=== PATIENT | female | born 2000 | race Hispanic/Latino ===

== ENCOUNTER → 2023-05-29 11:12 | Outpatient (CLI) | payer OTHER, SELFPAY ==
--- NOTE | 2023-05-29 11:14 | DI.US.S_ITS ---
PROCEDURE: US OB <= 14 WEEKS FETUS INDICATIONS: VAGINAL BLEEDING OUTSIDE/PRIOR DATING DATA: Last menstrual period (LMP): Uncertain First dating scan (date and location): 05/28/2020. Estimated date of delivery (SKYLAR) from first dating scan: 12/25/2023. The calculations are made using the ultrasound SKYLAR of 12/25/2023. TECHNIQUE: Real-time scanning was performed of the fetus and maternal pelvic organs, with image documentation. COMPARISON: [facility], US, US OB <= 14 WEEKS FETUS, 05/18/2023, 11:30. FINDINGS: Embryo: Single live intrauterine with crown lump length 3.26 cm, consistent with 10 weeks and 1 day. Gestational sac mean diameter of 4.83 cm, consistent with 10 weeks and 3 days. Composition station age of 10 weeks and 2 days. Yolk sac is seen. Small subchorionic hemorrhage measuring 2.6 x 0.9 x 0.9 cm. Heart rate: 169 Maternal organs: The right ovary is within normal limits. Left ovarian cyst measuring 3.4 x 2.4 x 3.4 cm. IMPRESSION: 1. Single live intrauterine consistent with 10 weeks and 2 days. Estimated delivery date of 12/23/2023 2. Small subchorionic hemorrhage is present. 3. Left ovarian cyst measuring 3.4 cm. We strive to produce accurate, complete, and clear reports of imaging services. To assist us in improving patient care, this report was composed using standard report templates and voice recognition software. Therefore, it may contain abnormal punctuation, insertions and/or omissions. Occasional wrong-word or sound-alike substitutions may occur. Though we review the report and make efforts to correct it, we do recommend that the report be read carefully in proper context to recognize any text inaccuracies. Dictated by: Marco A James M.D. on 05/29/2023 at 15:29 Approved by: Marco A James M.D. on 05/29/2023 at 15:32
== END ==
PROVIDERS: Referring Provider Physician Assistant Medical; Visit Provider Physician Assistant Medical
DX: O20.0 Threatened abortion (principal)
CPT/HCPCS: 76801

== ENCOUNTER → 2023-06-07 14:03 | Outpatient (CLI) | payer OTHER, SELFPAY ==
[2023-06-07 15:00] LABS: Add Manual Diff / Slide Review NO; Basophils Absolute Auto 100 /uL (0-100); Basophils Percent Auto 0.7 % (0-2); Eosinophils Absolute Auto 100 /uL (0-450); Eosinophils Percent Auto 1.3 % (2-4); Hematocrit 37.8 % (36-46); Hemoglobin 13.3 g/dL (12.0-16.0); Lymphocytes Absolute Auto 1900 /uL (1100-4500); Lymphocytes Percent Auto 18.6 % (25-40); Mean Corpuscular HGB Conc 35.2 % (30-36); Mean Corpuscular Hemoglobin 30.4 PG (26-34); Mean Corpuscular Volume 86.3 fL (80-100); Monocytes Absolute Auto 700 /uL (0-900); Monocytes Percent Auto 7.1 % (3-14); Neutrophils Absolute Auto 7400 /uL (1500-7000); Neutrophils Percent Auto 72.3 % (50-75); Platelet Count 272 X10^3/uL (150-400); Red Blood Cell Count 4.38 X10^6/uL (4.0-5.2); White Blood Cell Count 10.2 X10^3/uL (4.5-11.0)
[2023-06-07 15:36] LABS: Alanine Aminotransferase 20 IU/L (<35); Aspartate Aminotransferase 23 IU/L (14-36); Blood Urea Nitrogen 11 mg/dL (7-17); Estimated Glomerular Filt Rate > 60 mL/min (>60)
[2023-06-07 16:48] LABS: HIV 1 & 2 Ab/Ag 4th Gen Combo NEGATIVE (NEGATIVE); Hep C Virus Ab w/Reflex Quant NEGATIVE s/c (NEGATIVE); Hepatitis B Surface Antigen NEGATIVE s/c (NEGATIVE); Rubella Antibody IgG 66.9 IU/mL (>15)
[2023-06-08 09:21] LABS: Varicella IgG Antibody 455 index (Immune >165)
[2023-06-10 08:28] LABS: RPR Screen Non Reactive (Non Reactive)
== END ==
PROVIDERS: Referring Provider Physician Assistant Medical; Visit Provider Physician Assistant Medical
DX: O99.891 Other specified diseases and conditions complicating pregnancy (principal); R10.2 Pelvic and perineal pain
CPT/HCPCS: 36415; 80055; 82565; 84450; 84460; 84520; 84550; 86787; 86803; 86850; 86900; 86901; 87086; 87389; 87480; 87510; 87660

== ENCOUNTER → 2023-06-07 14:03 | Outpatient (CLI) | payer OTHER, SELFPAY ==
[2023-06-09 13:36] LABS: Candida species Negative (Negative); Gardnerella vaginalis Negative (Negative); Trichomoas vaginalis Negative (Negative)
== END ==
PROVIDERS: Visit Provider Physician Assistant Medical
DX: R10.2 Pelvic and perineal pain (principal)
CPT/HCPCS: 87480; 87510; 87660

== ENCOUNTER → 2023-07-10 08:50 | Outpatient (CLI) | payer OTHER, SELFPAY ==
[2023-07-12 21:50] LABS: AFP, Serum 27.8 ng/mL (.); Calc Gestational Age EDD (.); Estriol, Free 0.77 ng/mL (.); Inhibin A, Dimeric 100.36 pg/mL (.); Inhibin A, MoM 0.81 (.); Maternal Ethnicity Other (.); Maternal Weight 226 lbs (.); Number of Fetuses No (.); OSBR Risk 1 IN 10000 (.); Results Report (.); Test Results *Screen Negative* (.); hCG, MoM 0.87 (.); hCG, Serum 30361 mIU/mL (.)
== END ==
PROVIDERS: Referring Provider Family Medicine; Visit Provider Family Medicine
DX: Z34.01 Encounter for supervision of normal first pregnancy, first trimester (principal); Z3A.16 16 weeks gestation of pregnancy
CPT/HCPCS: 36415; 82105; 82677; 84702; 86336

== ENCOUNTER → 2023-08-13 16:03 | Outpatient (CLI) | payer OTHER, SELFPAY | PROVIDERS: Visit Provider Student in an Organized Health Care Education/Training Program | DX: N89.8 Other specified noninflammatory disorders of vagina (principal) | CPT/HCPCS: 87210 ==

== ENCOUNTER → 2023-08-13 16:35 | Outpatient (CLI) | payer OTHER, SELFPAY ==
[2023-08-13 18:26] LABS: Alanine Aminotransferase 20 IU/L (<35); Albumin 3.8 g/dL (3.5-5.0); Albumin Globulin Ratio 1.2 (1.0-2.8); Alkaline Phosphatase 50 U/L (38-126); Aspartate Aminotransferase 22 IU/L (14-36); BUN Creatinine Ratio 22.2 (6-22); Blood Urea Nitrogen 12 mg/dL (7-17); Calcium 9.3 mg/dL (8.4-10.2); Carbon Dioxide 24 mmol/L (22-32); Chloride 103 mmol/L (98-107); Estimated Glomerular Filt Rate > 60 mL/min (>60); Globulin 3.1 g/dL (1.7-4.1); Glucose 88 mg/dL (70-100); HEMOLYSIS < 15 (0-50); Potassium 3.2 mmol/L (3.4-5.1); Sodium 134 mmol/L (137-145); Total Protein 6.9 g/dL (6.3-8.2)
[2023-08-13 18:31] LABS: Bilirubin Total < 0.1 mg/dL (0.2-1.3)
[2023-08-16 10:09] LABS: Bile Acids 3.1 umol/L (0.0-10.0)
== END ==
PROVIDERS: Referring Provider Student in an Organized Health Care Education/Training Program; Visit Provider Student in an Organized Health Care Education/Training Program
DX: O99.719 Diseases of the skin and subcutaneous tissue complicating pregnancy, unspecified trimester (principal); L29.9 Pruritus, unspecified; O99.891 Other specified diseases and conditions complicating pregnancy; N89.8 Other specified noninflammatory disorders of vagina; R30.0 Dysuria
CPT/HCPCS: 36415; 80053; 82239; 87086; 87210

== ENCOUNTER → 2023-08-16 12:52 | Outpatient (CLI) | payer OTHER, SELFPAY ==
--- NOTE | 2023-08-16 12:53 | DI.US.S_ITS ---
PROCEDURE: US OB >= 14 WEEKS FETUS INDICATIONS: ANATOMY SCAN OUTSIDE/PRIOR DATING DATA: Last menstrual period (LMP): Unknown. LMP-based estimated date of delivery (SKYLAR): Unknown. First dating scan (date and location): 05/28/2023 Estimated date of delivery (SKYLAR) from first dating scan: 12/25/2023. The calculations are made using the working SKYLAR of 12/25/2023. TECHNIQUE: Real-time scanning was performed of the fetus, with image documentation and biometric measurements. Endovaginal scanning: None COMPARISON: None. FINDINGS: General: A single living intrauterine gestation is present. Presentation: Breech. Placenta: Placental position is posterior , without previa. Amniotic fluid index: 15.2 cm, normal range is 5-24 cm. Single deepest vertical pocket is 5.5 cm. heart rate: 149 beats per minute. Maternal cervical canal: 3.4 cm long. Normal lower limit is 2.5 cm. biometrics: Biparietal diameter: 4.7 cm, 20 week 2 day Head circumference: 18.5 cm, 20 week 6 day Abdominal circumference: 17.7 cm, 22 week 4 day Femur length: 3.6 cm, 21 week 4 day Clinically estimated gestational age: 21 week 2 day Composite gestational age from present scan: 21 week 2 day Estimated weight and percentile: 462 g, 78 percentile Anatomic survey: Neuro: Ventricles are non-dilated at less than 10 mm. Cisterna magna is normal at 3-11 mm. Cerebellum is normal in size and morphology. Nuchal skin fold: Normal at less than 6 mm between 14-21 weeks gestational age. Face: Nose and lips, facial profile are normal. Spine: No evidence for spina bifida. Heart: 4-chambered heart is present, with normal ventricular outflow tracts. Diaphragm: Diaphragm is intact. Stomach: Left-sided stomach is present. Kidneys: Mild bilateral hydronephrosis. The right and left renal pelvis measures 10.9 mm and 8.9 mm respectively Cord: 3-vessel cord has orthotopic insertion. Bladder: Normal in size. Extremities: All 4 extremities identified. IMPRESSION: Single live intrauterine consistent with 21 week 2 day gestation by current ultrasound. Mild bilateral hydronephrosis. Remainder of the anatomic survey unremarkable Approved by: Fletcher Gomez M.D. on 08/16/2023 at 17:04
== END ==
PROVIDERS: Referring Provider Family Medicine; Visit Provider Family Medicine
DX: Z36.89 Encounter for other specified antenatal screening (principal); Z3A.21 21 weeks gestation of pregnancy
CPT/HCPCS: 76811

== ENCOUNTER 2023-08-29 13:35 | Outpatient (CLI) | payer OTHER, SELFPAY ==
[2023-08-29 14:42] LABS: Appearance Urine UA CLEAR; Bilirubin Urine UA NEGATIVE (NEGATIVE); Color Urine UA YELLOW; Glucose Urine UA NEGATIVE (Negative); Ketones Urine UA NEGATIVE (NEGATIVE); Leukocyte Esterase Urine UA TRACE (NEGATIVE); Nitrite Urine UA NEGATIVE (Negative); Occult Blood Urine UA TRACE-INTACT (Negative); Protein Urine UA NEGATIVE (Negative); Urobilinogen Urine UA 0.2 E.U./dL (0.2)
[2023-08-29 14:43] LABS: pH Urine UA 6.5 (4.5-8.0)
[2023-08-29 14:48] LABS: RBC Urine 0-1/HPF (0-5/HPF); WBC Urine 5-10/HPF (0-5/HPF)
[2023-08-29 14:49] LABS: Bacteria Urine None Seen; Culture Indicated Urine Specimen Cultured; Squamous Epithelial Cell Urine 1-5 /HPF (0-5/HPF)
--- NOTE | 2023-08-29 15:10 | P.TNLD_ITS ---
Visit Information Visit Information Date of evaluation: 08/29/23 Primary OB Provider: Zachary Grider On-call OB Provider: Dinora Ray Comments/Additional reasons for admission: 23-year-old at 23+1 weeks presented to triage for blood on the toilet paper today when wiping. Denies any abdominal pain or leaking fluid. Has had a UTI in this , with several rounds of treatment. Vital Signs Vital Signs: reviewed in OBIX, within normal parameters PFSH Medical History (Updated 08/29/23 @ 15:15 by Dinora Ray DO) Cyclical vomiting Abnormal sputum Anxiety Surgical History (Updated 05/28/23 @ 08:21 by Felecia Beach, RN) History of removal of skin mole History of dental surgery [place] teeth extracted Family History (Updated 05/28/23 @ 08:24 by Felecia Beach, RN) Mother Breast tumor Migraine Osteoarthritis Grandmother Hypertension Heart disease Hypothyroidism Father Hypertension Grandmother Diabetes mellitus Family/Other Hypothyroidism Social History marital status: number of children: 0 household members: spouse lives independently: Yes caregiver/support person: No housing: condominium ([facility]) pets and animals: Yes (2 dogs, 1 lizard) education level: college (associate's degree, working on bachelor's) occupational status: previously employed and student current occupational exposures/hazards: No special katherine needs: No travel history: recent (domestic only) seatbelt use: always helmet use: No water heater temp set < 120 deg: Yes working smoke detector in home: Yes fire extinguisher in home: No carbon monox detector in home: Yes firearms in home: No do you feel safe at home: Yes Smoking Status: Former smoker (quit around the time she learned she was ) Tobacco: How many years used: 5 (MJ) second hand exposure: Yes ( vapes) alcohol intake: never substance use type: marijuana (stopped when she became ) during the past year weight has: decreased > 10 lbs (unintentional, likely due to vomiting) well-balanced diet: about half the time daily servings fruits/ve-4 (mostly fruit, very little veg) caffeine: Yes (fruited green tea) Type(s) of exercise: walking and other (hiking) frequency: daily duration: 15-30 minutes/day Review of Systems Review of Systems ROS: Yes All systems reviewed with the patient and are negative except as otherwise documented Objective Labs Labs: Laboratory Results - last 24 hr 08/29/23 14:00 Urine Color Yellow Urine Appearance Clear Urine pH 6.5 Ur Specific [place] 1.010 Urine Protein Negative Urine Glucose (UA) Negative Urine Ketones Negative Urine Occult Blood Trace-intact Urine Nitrate Negative Urine Bilirubin Negative Urine Urobilinogen 0.2 Ur Leukocyte Esterase Trace H Urine RBC 0-1/hpf Urine WBC 5-10/hpf H Ur Squamous Epith Cells 1-5 /hpf Urine Bacteria None seen Ur Culture Indicated? Specimen cultured Evaluation Evaluation Comments: doptones within normal parameters Diagnosis, Plan/Disposition Final Diagnosis (1) Vaginal bleeding during : Status: Acute Plan/Disposition Plan: 23-year-old at 23+ 1 weeks with reassuring evaluation in triage today. Doptones were normal, her belly was soft and nontender per nursing evaluation. No vaginal bleeding while in triage today. Her UA was sent for culture. -bleeding precautions given to patient, with reasons to return to care -follow-up with primary OB provider as scheduled OB Disposition: home
== END 2023-08-29 15:13 | disposition home or self-care (01) ==
LOC: LABOR 13:51 → OB 08-31 13:50
PROVIDERS: Referring Provider Student in an Organized Health Care Education/Training Program; Visit Provider Student in an Organized Health Care Education/Training Program
DX: O46.92 Antepartum hemorrhage, unspecified, second trimester (principal); Z3A.23 23 weeks gestation of pregnancy
CPT/HCPCS: 59025; 81001; 87086; G0378; G0379

== ENCOUNTER → 2023-09-02 14:08 | Outpatient (CLI) | payer OTHER, SELFPAY | PROVIDERS: Visit Provider Nurse Practitioner Family | DX: R10.9 Unspecified abdominal pain (principal); N94.9 Unspecified condition associated with female genital organs and menstrual cycle | CPT/HCPCS: 87086; 87210 ==

== ENCOUNTER 2023-09-14 08:01 | Inpatient (IN) | payer OTHER, SELFPAY ==
[2023-09-14 08:59] LABS: Add Manual Diff / Slide Review NO; Basophils Absolute Auto 0 /uL (0-100); Basophils Percent Auto 0.2 % (0-2); Eosinophils Absolute Auto 100 /uL (0-450); Eosinophils Percent Auto 0.4 % (2-4); Hematocrit 34.8 % (36-46); Hemoglobin 11.8 g/dL (12.0-16.0); Lymphocytes Absolute Auto 1100 /uL (1100-4500); Lymphocytes Percent Auto 6.3 % (25-40); Mean Corpuscular HGB Conc 33.9 % (30-36); Mean Corpuscular Hemoglobin 30.1 PG (26-34); Mean Corpuscular Volume 88.9 fL (80-100); Monocytes Absolute Auto 1100 /uL (0-900); Monocytes Percent Auto 6.4 % (3-14); Neutrophils Absolute Auto 14600 /uL (1500-7000); Neutrophils Percent Auto 86.7 % (50-75); Platelet Count 198 X10^3/uL (150-400); Red Blood Cell Count 3.91 X10^6/uL (4.0-5.2); Red Cell Distribution Width 13.5 % (11.6-14.8); White Blood Cell Count 16.9 X10^3/uL (4.5-11.0)
[2023-09-14 09:07] LABS: COVID19 -Nasal RAPID Negative (Negative)
[2023-09-14] MEDS: MAGNESIUM SULFATE 4 GM/100 ML PIGGYBACK IV (09:08)
[2023-09-14] MEDS: BETAMETHASONE 30 MG/5 ML MDV 12 MG IM (09:11)
--- NOTE | 2023-09-14 09:42 | P.HPOB_ITS ---
OB HPI Date/Time Date of admission: 09/14/23 Date Patient Seen: 09/14/23 Time Patient Seen: 08:45 History of Present Condition Chief complaint: observation of labor SKYLAR Calculator 2 Estimated Delivery Date Method Current WG Current Estimate 12/25/23 Ultrasound #1 25w 3d Other Estimates 12/08/23 LMP (Uncertain) 27w 6d 12/23/23 Ultrasound #2 25w 5d Estimated Gestational Age (weeks): 25+3 : 1 Para: 0 Narrative: 23-year-old at [place] 25+3 weeks by 1st trimester ultrasound presents with complaint of contractions. Started feeling cramping sensation in her abdomen yesterday afternoon and overnight. Lost part of her mucus plug at approximately 2:00 a.m. this morning and again additional mucus plug with light spotting at approximately 6:30 a.m. this morning. Presented to labor and delivery at 8:30 a.m. and had rupture of membranes with clear fluid as she walked to the door. Continues to feel moderate to severe contractions every 4-5 minutes. Endorses normal movement, no additional bleeding since spotting this morning. care: limited care, initiated at week # (11), number of visits (5) and pounds weight gain (21) Dating criteria OB: based on 1st trimester US only Ultrasounds: normal 1st trimester US and normal mid trimester US Obstetrical complications: labor and other (obesity) Preadmission Labs Last OB Lab Results: 2 Blood Type A Positive 06/07/23 14:11 Antibody Screen Negative 06/07/23 14:11 Hematocrit 34.8 % (36-46) L 09/14/23 08:47 Hemoglobin 11.8 g/dL (12.0-16.0) L 09/14/23 08:47 Hepatitis B Surface Antigen Negative s/c (NEGATIVE) 06/07/23 14 :11 Hepatitis C Antibody Negative s/c (NEGATIVE) 06/07/23 14:11 Rubella Antibody 66.9 IU/mL (>15) 06/07/23 14:11 Varicella-Zoster IgG Antibody 455 index (Immune >165) 06/07/23 14:11 -: Chlamydia screen: negative and Gonorrhea screen: negative Genetic Screens: Quad screen: Normal External Labs Blood type OB HPI: A (+) positive HCT: 34.8 PAP: Normal Genetic Screens: Quad screen: Normal Evaluation Evaluation Baseline heart rate: 160 Variability: Moderate (11-25) monitor accelerations: Absent Monitor Decelerations: Variable ([id number]) Contraction Frequency (minutes): 4 Uterine Contraction Intensity: Moderate Category of Tracing: Appropriate for gestational age Status: Category ll Dilation (cm): 5 Effacement (%): 100 Position of cervix: mid Consistency: soft Comments: Evangelista rupture with amniotic fluid pooling and vaginal vault PFSH Medical History (Updated 09/14/23 @ 10:50 by Zachary Grider MD) Cyclical vomiting Abnormal sputum Anxiety Surgical History (Updated 05/28/23 @ 08:21 by Felecia Beach, CARL) History of removal of skin mole History of dental surgery [place] teeth extracted Family History (Updated 05/28/23 @ 08:24 by Felecia Beahc, CARL) Mother Breast tumor Migraine Osteoarthritis Grandmother Hypertension Heart disease Hypothyroidism Father Hypertension Grandmother Diabetes mellitus Family/Other Hypothyroidism Social History marital status: number of children: 0 household members: spouse lives independently: Yes caregiver/support person: No [facility] pets and animals: Yes (2 dogs, 1 lizard) education level: college (associate's degree, working on bachelor's) occupational status: previously employed and student current occupational exposures/hazards: No special katherine needs: No travel history: recent (domestic only) seatbelt use: always helmet use: No water heater temp set < 120 deg: Yes working smoke detector in home: Yes fire extinguisher in home: No carbon monox detector in home: Yes firearms in home: No do you feel safe at home: Yes Smoking Status: Former smoker (quit around the time she learned she was ) Tobacco: How many years used: 5 (MJ) second hand exposure: Yes ( vapes) alcohol intake: never substance use type: marijuana (stopped when she became ) during the past year weight has: decreased > 10 lbs (unintentional, likely due to vomiting) well-balanced diet: about half the time daily servings fruits/ve-4 (mostly fruit, very little veg) caffeine: Yes (fruited green tea) Type(s) of exercise: walking and other (hiking) frequency: daily duration: 15-30 minutes/day Meds Home Medications and Allergies Home Medications Medication Instructions Recorded Confirmed Type HAQ76-HR 400 mcg-om3 35 mg-dha 25 tab PO 05/28/23 09/05/23 History mg-epa 5 mg-fish oil chewable tablet ferrous gluconate 240 mg (27 mg 240 mg PO DAILY 05/28/23 09/05/23 History iron) tablet (Ferate) ondansetron 8 mg disintegrating 8 mg PO Q8H PRN nausea and vomiting 05/28/23 09/05/23 History tablet hydroxyzine HCl 25 mg tablet 25 mg PO BID #20 tabs 06/07/23 09/05/23 Rx doxylamine succinate 25 mg tablet 25 mg PO BEDTIME PRN nausea #30 07/10/23 09/05/23 Rx (Unisom (doxylamine)) tabs pyridoxine (vitamin B6) 50 mg 50 mg PO TID #90 tabs 07/10/23 09/05/23 Rx tablet simethicone 80 mg chewable tablet 80 mg PO BID-QID PRN abdominal 07/10/23 09/05/23 Rx (Gas Relief (simethicone)) distention #90 tabs hydrocortisone 2.5 % topical cream 1 applic topical BID PRN itching 09/05/23 09/05/23 Rx #30 grams Allergies Allergy/AdvReac Type Severity Reaction Status Date / Time No Known Drug Allergies Allergy Unverified 09/05/23 14:46 Review of Systems Review of Systems ROS: Yes All systems reviewed with the patient and are negative except as otherwise documented OB Exam Narrative Exam Narrative: General: Mildly uncomfortable with contractions HEENT: Normocephalic, EOMI, external ears and nose normal-appearing, moist mucous membranes Resp: Clear to auscultation bilaterally, comfortable work of breathing CV: Regular rate and rhythm Abdomen: Soft, nontender, 25 week gravid uterus : Normal external genitalia vaginal vault pink and moist with significant fluid pooling with bulging bag on speculum exam, manual cervical exam 4/100/-2 at initial evaluation, racquet maker present throughout exam Neuro: A&O x3, moves all extremities, sensory or motor deficits Objective Imaging US - abdomen: My impression: Cephalic presentation on bedside ultrasound, MVP 2.5 cm Labs 09/14/23 08:47 Labs: Laboratory Results - last 24 hr 09/14/23 09/14/23 08:47 08:49 WBC 16.9 H RBC 3.91 L Hgb 11.8 L Hct 34.8 L MCV 88.9 MCH 30.1 MCHC 33.9 RDW 13.5 Plt Count 198 Neut % (Auto) 86.7 H Lymph % (Auto) 6.3 L Hughes % (Auto) 6.4 Eos % (Auto) 0.4 L Baso % (Auto) 0.2 Neut # (Auto) 77748 H Lymph # (Auto) 1100 Hughes # (Auto) 1100 H Eos # (Auto) 100 Baso # (Auto) 0 SARS-CoV-2 (PCR) Negative Assessment and Plan Assessment and Plan Assessment and Plan narrative: 23-year-old at [place] 25+3 weeks in labor. Betamethasone 12 mg IV MgSO4 4 g bolus, 2 grams/hour IV ampicillin 2 g q.8 hours Nifedipine 30 mg p.o. for tocolysis Spoke with on-call Ob at insufficient staffing for transfer. Spoke to on- call OB [facility] feels patient unstable for transfer this time, recommends monitoring with attempted tocolysis and can consider transfer later today if she remains stable. Over the course of initial evaluation patient progress to 9 cm dilation with bulging bag. NICU transport team at [facility] and en route via ground transport. Anticipate vaginal delivery here with prompt transfer to higher level of care. On-call shell machine operator and RT aware, will be present for delivery. Time Spent with Patient Total time spent with greater than 50% in coordination of care (as documented) at patient's floor/unit and/or counseling patient:: Greater than 35 minutes
[2023-09-14] MEDS: LACTATED RINGERS 1,000 ML 100 ML IV (09:45)
[2023-09-14] MEDS: AMPICILLIN 2,000 MG in SODIUM CHLORIDE 0.9% 100 ML 200 MG IV (09:45)
[2023-09-14] MEDS: MAGNESIUM SULFATE 20 GM/500 ML IV.SOLN IV (09:49)
[2023-09-14 12:47] LABS: Strep Grp B PCR POS for Grp B Strep
--- NOTE | 2023-09-14 13:21 | RT ---
Called to L&D for 25 week delivery. All equip on and ready, warmer on [id number]/5 and bag mask unit. MD and RN plus team at bedside. [facility] arrived at noon and took over care.
[2023-09-14] MEDS: OXYTOCIN PREMIX 30 UNIT/500 ML PLAST..BAG 200 UNIT IV (13:43)
--- NOTE | 2023-09-14 14:08 | PATH_ITS ---
[facility] Accession Number: [id number] No. of containers..01 Tissue . 01 Material submitted: . placenta - PLACENTA . 01 Diagnosis: Placenta, 25 + 3 Weeks, 236 grams: 1. Acute chorioamnionitis. 2. Villous infarct, subacute, 0.5 cm in greatest dimension. 3. Subchorionic intervillous thrombus, 1.2 cm (as measured on slide). 4. Three vessel cord without funisitis. 5. Overall villous maturation appropriate for gestational age. MRV 09/27/2023 1327 Local . 01 Electronically signed: . Ashley Alvarado MD, Pathologist NPI- [id number] . 01 Gross description: . The specimen is received in formalin labeled with the patient's name, , and placenta, and consists of a discoid riojas placenta with a trimmed weight of 236 grams and measuring 13.1 x 12.0 x 1.9 cm with no accessory lobes identified. The membranes are soto and translucent with thickened, gelatinous areas occupying approximately 10% of the membrane surface. No additional thickening or lesions are identified. They insert at the margin and have a point of rupture 10.2 cm from the nearest placental disc edge. The segment of cord measures 6.6 cm in length by 1.0 cm in average diameter with a leftward coil and an index of approximately 1 twist per 5 cm. The cord inserts eccentrically 3.5 cm from the nearest placental disc edge. Sectioning reveals unremarkable trivascular architecture with no knots or lesions identified. The surface is blue-soto with normal arborizing vasculature, and no discoloration or lesions identified. The maternal surface is apparantly complete with some small areas of adherent hemorrhage occupying approximately 10% of the maternal surface. No additional discoloration or lesions are identified. Sectioning reveals a pink-soto, spongy cut surface with no discoloration or lesions identified. J2Ee Application Developer sections are submitted as follows: A1: Membrane roll and placental end of cord. A2: Membrane roll and end of cord. A3-A4: Full thickness sections with adherent hemorrhagic material. A5-A7: Central full thickness unremarkable sections. ([id number]) /TAYA 09/27/2023 1420 Local . 01 Microscopic: . PAS stains were performed on blocks A1 and A3 in order to evaluate the vessels for neutrophilic extravasation. No definite migration of neutrophils is identified in the vascular wall. . 01 Pathologist provided ICD-10: O41.1220 . 01 CPT . 642718, 545850 Specimen Comment: A courtesy copy of this report has been sent to [facility] Pathology Performed at: 01 [facility] Cytology [address] [place] [address], [place], [place] [id number] MD Gucci Griffiths MD Phone: [phone]
--- NOTE | 2023-09-14 14:42 | P.PCNOB_ITS ---
Events: Labor < 37 wks Labor & Delivery Delivery date: 09/14/23 Intrapartal Events: Deceleration (Variables) Cervical ripening method: none Induction method: none Delivery monitor: external FHT Route of delivery: L&D Laceration Description: None Estimated blood loss (mL): 100 Anesthesia Type: None Narrative: Patient fully dilated at 1322 and began pushing. Spontaneous vaginal delivery of a viable female in the OA position occurred at 1337. The was suctioned and stimulated at the perineum, and gave appropriate cry with movement of all extremities immediately. Decision was made to delay cord clamping for maximal blood volume given extreme prematurity. Cord was clamped and cut at 45 seconds, and handed off to supervisor sandblaster at bedside for evaluation. Cord blood and segment were obtained. The placenta was delivered without difficulty using gentle cord traction and found to be intact with a three-vessel cord. After fundal massage the uterus was firm and bleeding stopped. The vagina and cervix were examined with no lacerations noted. Patient stable. [place] Baby 1: Infant gender: Female Presentation: vertex Placenta delivery description: Spontaneous Cord Vessel Description: 3 Vessels score (1 min): 2 score (5 min): 4 score (10 min): 7 weight: 1 lb 12.925 oz Plan for aftercare: Routine care
[2023-09-14] MEDS: IBUPROFEN 600 MG TABLET PO ×2 (17:09→23:22)
[2023-09-14 18:25] VITALS: BP 111/71
--- NOTE | 2023-09-15 09:49 | P.DS_ITS ---
Discharge Providers Provider Date of admission: 09/14/23 08:01 Discharge Date: 09/15/23 Primary care physician: Zachary Grider MD Consults: 09/15/23 14:36 Consult to Fixer Supervisor Routine Comment: Discharge provider: Zachary Grider MD Summary Hospital Course Date Patient Seen: 09/15/23 Time Patient Seen: 09:20 Diagnoses: labor with delivery in second trimester Hospital Course: Admitted for labor with spontaneous vaginal delivery at [place] 25+3 weeks. [place] transferred to higher level of care due to extreme prematurity. course uncomplicated. At time of discharge she is ambulating, voiding, passing flatus, tolerating a normal diet, and pain is well controlled. Peripartum Data Infant Delivery Method: Natural Vaginal Laceration Description: None complications: none Discharge Diagnosis (1) (spontaneous vaginal delivery): Start Date: 09/14/23 Status: Acute (2) labor with delivery in second trimester: Start Date: 09/14/23 Status: Acute Status at Discharge Cognitive/behavioral status at discharge: oriented Functional status at discharge: independent ambulation Overall status at discharge: patient is back to baseline Time Spent with Patient Time attestation: Total time spent providing and/or coordinating discharge services: Time spent: Greater than 30 minutes Objective Labs 09/14/23 08:47 Labs: Laboratory Results - last 24 hr 09/14/23 09/14/23 08:47 10:30 Group B Strep (PCR) Pos for grp b strep H Blood Type A Positive Antibody Screen Negative Exam Narrative Exam Narrative: General: Alert, conversant, no acute distress HEENT: Moist mucous membranes, no pallor Resp: Clear auscultation bilaterally, comfortable work of breathing CV: Regular rate rhythm, no murmur auscultated Abd: Soft, bowel sounds present, fundus firm below umbilicus, appropriately tender Extremities: Well perfused, no edema Discharge Plan Discharge Plan Patient Disposition: Home Discharge orders & Medications Prescriptions: New ibuprofen 600 mg tablet 600 mg PO Q6H PRN (Reason: pain) Qty: 60 0RF Continued simethicone [Gas Relief (simethicone)] 80 mg tablet,chewable 80 mg PO BID-QID PRN (Reason: abdominal distention) Qty: 90 1RF hydrocortisone 2.5 % cream 1 applic topical BID PRN (Reason: itching) Qty: 30 0RF hydroxyzine HCl 25 mg tablet 25 mg PO BID Qty: 20 0RF [id number]-stts oil 400 mcg-35 mg -25 mg-5 mg tablet,chewable PO ferrous gluconate [Ferate] 240 mg (27 mg iron) tablet 240 mg PO DAILY Discontinued pyridoxine (vitamin B6) 50 mg tablet 50 mg PO TID Qty: 90 1RF Unisom (doxylamine) 25 mg tablet 25 mg PO BEDTIME PRN (Reason: nausea) Qty: 30 1RF ondansetron 8 mg tablet,disintegrating 8 mg PO Q8H PRN (Reason: nausea and vomiting) Follow up/Referrals: Zachary Grider MD [Physician] - (please call Dr. Grider's office on Sunday morning to schedule your follow up appt.) Diet/Activity/Treatments Diet: Regular Visit Report/Discharge Packet Instructions: DI for Depression Stand Alone Forms: Discharge: Care, Patient Portal/API, Stroke Signs & Symptoms Discharge Data Primary Care Provider: ProviderMark Discharges patient from system. Discharge Date/Time: 09/15/23 10:20
[2023-09-15] MEDS: IBUPROFEN 600 MG TABLET PO (09:55)
[2023-09-15] MEDS: DOCUSATE 100 MG CAPSULE PO (09:55)
== END 2023-09-15 10:20 | disposition home or self-care (01) | DRG 807 ==
PROVIDERS: Admitting Provider Family Medicine; Referring Provider Family Medicine; Visit Provider Family Medicine
DX: O60.12X0 Preterm labor second trimester with preterm delivery second trimester, not applicable or unspecified (principal); Z37.0 Single live birth; O76 Abnormality in fetal heart rate and rhythm complicating labor and delivery; Z3A.25 25 weeks gestation of pregnancy
CPT/HCPCS: 36415; 59050; 59400; 76815; 84112; 85025; 86850; 86900; 86901; 87635; 87653; C9803; G0379; J0290; J0702; J2590; J3475

== ENCOUNTER → 2023-09-20 13:09 | Outpatient (CLI) | payer OTHER, SELFPAY ==
--- NOTE | 2023-09-20 13:10 | DI.US.S_ITS ---
PROCEDURE: US PERIPH VENOUS LOW EXTREM BI INDICATIONS: BILATERAL LEG PAIN TECHNIQUE: Real-time imaging, as well as color and pulse Doppler interrogation, were performed of the deep veins of both legs from the inguinal ligament to the popliteal fossa, with documentation of the visualized calf veins. COMPARISON: None. FINDINGS: Right: The common femoral, femoral, popliteal, and the visualized calf veins are normally compressible, and free of intraluminal thrombus. Color and pulse Doppler demonstrate normal phasic intravascular flow. There is normal augmentation response to distal compression maneuver. Left: The common femoral, femoral, popliteal, and the visualized calf veins are normally compressible, and free of intraluminal thrombus. Color and pulse Doppler demonstrate normal phasic intravascular flow. There is normal augmentation response to distal compression maneuver. IMPRESSION: No findings of deep venous thrombosis in either lower extremity. Dictated by: Kvng Elise M.D. on 09/20/2023 at 14:14 Approved by: Kvng Elise M.D. on 09/20/2023 at 14:14
[2023-09-20 14:53] LABS: Add Manual Diff / Slide Review NO; Basophils Absolute Auto 100 /uL (0-100); Basophils Percent Auto 0.7 % (0-2); Eosinophils Absolute Auto 200 /uL (0-450); Eosinophils Percent Auto 2.7 % (2-4); Hematocrit 39.4 % (36-46); Hemoglobin 13.3 g/dL (12.0-16.0); Lymphocytes Absolute Auto 2000 /uL (1100-4500); Lymphocytes Percent Auto 21.1 % (25-40); Mean Corpuscular HGB Conc 33.7 % (30-36); Mean Corpuscular Hemoglobin 29.6 PG (26-34); Mean Corpuscular Volume 87.9 fL (80-100); Monocytes Absolute Auto 500 /uL (0-900); Monocytes Percent Auto 5.8 % (3-14); Neutrophils Absolute Auto 6500 /uL (1500-7000); Neutrophils Percent Auto 69.7 % (50-75); Platelet Count 272 X10^3/uL (150-400); Red Blood Cell Count 4.48 X10^6/uL (4.0-5.2); Red Cell Distribution Width 13.1 % (11.6-14.8); White Blood Cell Count 9.3 X10^3/uL (4.5-11.0)
[2023-09-20 15:13] LABS: Alanine Aminotransferase 23 IU/L (<35); Albumin 3.9 g/dL (3.5-5.0); Albumin Globulin Ratio 1.2 (1.0-2.8); Alkaline Phosphatase 67 U/L (38-126); Aspartate Aminotransferase 20 IU/L (14-36); BUN Creatinine Ratio 27.5 (6-22); Bilirubin Total 0.3 mg/dL (0.2-1.3); Blood Urea Nitrogen 22 mg/dL (7-17); Calcium 9.6 mg/dL (8.4-10.2); Carbon Dioxide 27 mmol/L (22-32); Chloride 103 mmol/L (98-107); Estimated Glomerular Filt Rate > 60 mL/min (>60); Globulin 3.2 g/dL (1.7-4.1); Glucose 83 mg/dL (70-100); HEMOLYSIS < 15 (0-50); Potassium 3.9 mmol/L (3.4-5.1); Sodium 138 mmol/L (137-145); Total Protein 7.1 g/dL (6.3-8.2)
== END ==
PROVIDERS: Referring Provider Family Medicine; Visit Provider Family Medicine
DX: M79.604 Pain in right leg (principal); M79.605 Pain in left leg; M79.661 Pain in right lower leg; M79.662 Pain in left lower leg; R25.2 Cramp and spasm
CPT/HCPCS: 36415; 80053; 83735; 85025; 93970

== ENCOUNTER → 2023-10-30 13:20 | Outpatient (CLI) | payer OTHER, SELFPAY | PROVIDERS: Visit Provider Family Medicine | DX: N93.9 Abnormal uterine and vaginal bleeding, unspecified (principal) | CPT/HCPCS: 87210 ==

== ENCOUNTER → 2023-10-30 13:36 | Outpatient (CLI) | payer OTHER, SELFPAY ==
[2023-10-30 14:40] LABS: Appearance Urine UA CLEAR; Bilirubin Urine UA NEGATIVE (NEGATIVE); Color Urine UA YELLOW; Glucose Urine UA NEGATIVE (Negative); Ketones Urine UA NEGATIVE (NEGATIVE); Leukocyte Esterase Urine UA NEGATIVE (NEGATIVE); Nitrite Urine UA NEGATIVE (Negative); Occult Blood Urine UA NEGATIVE (Negative); Protein Urine UA TRACE (Negative); Urobilinogen Urine UA 0.2 E.U./dL (0.2)
[2023-10-30 14:41] LABS: Add Manual Diff / Slide Review NO; Basophils Absolute Auto 0 /uL (0-100); Basophils Percent Auto 0.3 % (0-2); Eosinophils Absolute Auto 200 /uL (0-450); Eosinophils Percent Auto 3.9 % (2-4); Hematocrit 38.3 % (36-46); Hemoglobin 13.2 g/dL (12.0-16.0); Lymphocytes Absolute Auto 1700 /uL (1100-4500); Lymphocytes Percent Auto 29.6 % (25-40); Mean Corpuscular HGB Conc 34.4 % (30-36); Mean Corpuscular Hemoglobin 29.2 PG (26-34); Mean Corpuscular Volume 84.8 fL (80-100); Monocytes Absolute Auto 400 /uL (0-900); Monocytes Percent Auto 7.7 % (3-14); Neutrophils Absolute Auto 3400 /uL (1500-7000); Neutrophils Percent Auto 58.5 % (50-75); Platelet Count 253 X10^3/uL (150-400); Red Blood Cell Count 4.51 X10^6/uL (4.0-5.2); Red Cell Distribution Width 12.9 % (11.6-14.8); White Blood Cell Count 5.7 X10^3/uL (4.5-11.0)
[2023-10-30 14:43] LABS: Bacteria Urine None Seen; Culture Indicated Urine Cult Not Indicated; RBC Urine None Seen (0-5/HPF); Squamous Epithelial Cell Urine None Seen (0-5/HPF); WBC Urine None Seen (0-5/HPF)
[2023-10-30 14:46] LABS: HCG Quantitative /Beta subunit < 2.4 mIU/mL; Prolactin 36.6 ng/mL (3.0-18.6)
[2023-10-30 15:01] LABS: TSH w/ Reflex to FT4 0.83 uIU/mL (0.47-4.68)
[2023-10-30 16:04] LABS: Urine N gonorrhoeae NOT DETECTED
[2023-10-30 16:17] LABS: Urine Chlamydia NOT DETECTED
== END ==
PROVIDERS: Referring Provider Family Medicine; Visit Provider Family Medicine
DX: N93.9 Abnormal uterine and vaginal bleeding, unspecified (principal); O46.90 Antepartum hemorrhage, unspecified, unspecified trimester; O92.79 Other disorders of lactation; N76.0 Acute vaginitis
CPT/HCPCS: 36415; 81001; 84146; 84443; 84702; 85025; 87210; 87491; 87591

== ENCOUNTER 2023-11-07 14:36 | Emergency (ER) | payer OTHER, SELFPAY ==
[2023-11-07 14:41] VITALS: BP 122/81; PULSE 92; RESP 18; TEMP 37.2; O2SAT 100; BMI 35.9
--- NOTE | 2023-11-07 14:46 | DI.US.S_ITS ---
PROCEDURE: US PERIPH VENOUS LOW EXTREM RT INDICATIONS: right thigh/calf pain TECHNIQUE: Real-time imaging, as well as color and pulse Doppler interrogation, were performed of the lower extremity deep veins from the inguinal ligament to the popliteal fossa, with documentation of the visualized calf veins. COMPARISON: None. FINDINGS: The common femoral, femoral, popliteal, and the visualized calf veins are normally compressible, and free of intraluminal thrombus. Color and pulse Doppler demonstrate normal phasic intraluminal flow. There is normal augmentation response to distal compression maneuver. IMPRESSION: No findings of lower extremity deep venous thrombosis. Dictated by: Rowan Pascual M.D. on 11/07/2023 at 15:17 Approved by: Rowan Pascual M.D. on 11/07/2023 at 15:17
--- NOTE | 2023-11-07 15:59 | ED_ITS ---
HPI - Extremity Problem <Triny Botello PA-C - Last Filed: 11/07/23 16:12> General Chief complaint: Extremity Problem,Nontraumatic Stated complaint: right calf pain when sitting down Time Seen by Provider: 11/07/23 15:30 Source: patient Mode of arrival: Ambulatory History of Present Illness HPI Narrative: 23-year-old female presents to the ED with 1 week of right calf and hamstring pain. I early September 2023, patient gave to a premature baby GERD at 25 weeks of gestation, baby is in the NICU in [place]. Patient presents to the ED today with 1 week of worsening right-sided calf and hamstring pain. Denies any trauma. Denies numbness, tingling, weakness. Patient states that the pain feels better when her knee is extended. Related Data Home Medications Medication Instructions Recorded Confirmed [id number] 400 mcg-om3 35 mg-dha 25 tab PO 05/28/23 10/30/23 mg-epa 5 mg-fish oil chewable tablet ferrous gluconate 240 mg (27 mg 240 mg PO DAILY 05/28/23 10/30/23 iron) tablet (Ferate) Previous Rx's Medication Instructions Recorded hydroxyzine HCl 25 mg tablet 25 mg PO BID #20 tabs 06/07/23 simethicone 80 mg chewable tablet 80 mg PO BID-QID PRN abdominal 07/10/23 (Gas Relief (simethicone)) distention #90 tabs hydrocortisone 2.5 % topical cream 1 applic topical BID PRN itching 09/05/23 #30 grams ibuprofen 600 mg tablet 600 mg PO Q6H PRN pain #60 tabs 09/15/23 Breast pump #1 ea 10/11/23 buspirone 5 mg tablet 5 mg PO BID PRN anxiety #60 tabs 10/30/23 paroxetine HCl 10 mg tablet 10 mg PO DAILY #30 tabs 10/30/23 Allergies Allergy/AdvReac Type Severity Reaction Status Date / Time No Known Drug Allergies Allergy Unverified 10/30/23 12:15 Review of Systems <Triny Botello PA-C - Last Filed: 11/07/23 16:12> Constitutional Constitutional: Denies chills, Denies fatigue, Denies fever(s), Denies frequent falls, Denies lethargy and Denies weakness Eyes Eyes: Denies change in vision, Denies eye discharge, Denies irritation and Denies loss of vision ENT Ears, Nose, Mouth, and Throat: Denies change in voice, Denies dizziness, Denies neck pain, Denies sore throat and Denies throat swelling Cardiovascular Cardiovascular: Denies chest pain, Denies irregular heart rhythm, Denies lightheadedness, Denies palpitations, Denies dyspnea, Denies dyspnea on exertion and Denies orthopnea Respiratory Respiratory: Denies cough, Denies dyspnea, Denies dyspnea on exertion and Denies wheezing Gastrointestinal Gastrointestinal: Denies abdominal pain, Denies change in bowel habits, Denies diarrhea, Denies nausea and Denies vomiting Musculoskeletal Musculoskeletal: Denies neck pain and Denies numbness Comments: Right-sided calf and hamstring pain Integumentary/Breasts Skin/Breast: Denies pruritus, Denies erythema, Denies rash and Denies wounds Neurologic Neurologic: Denies behavioral changes, Denies confusion, Denies dizziness, Denies frequent falls, Denies loss of vision, Denies numbness and Denies weakness Psychiatric Psychiatric: Denies anxiety, Denies behavioral changes, Denies confusion, Denies depression, Denies homicidal ideation and Denies suicidal ideation Endocrine Endocrine: Denies fatigue, Denies flushing and Denies palpitations Hematologic/Lymphatic Hematologic/Lymphatic: Denies easy bruising Allergic/Immunologic Allergic/Immunologic: Denies urticaria, Denies throat swelling and Denies wheezing Patient History <Triny Botello PA-C - Last Filed: 11/07/23 16:12> Medical History (spontaneous vaginal delivery) (09/14/23) labor with delivery in second trimester (09/14/23) hydronephrosis during , antepartum Cyclical vomiting Abnormal sputum Anxiety Surgical History History of removal of skin mole History of dental surgery [place] teeth extracted Family History Mother Breast tumor Migraine Osteoarthritis Grandmother Hypertension Heart disease Hypothyroidism Father Hypertension Grandmother Diabetes mellitus Family/Other Hypothyroidism Social History marital status: number of children: 0 household members: spouse lives independently: Yes caregiver/support person: No housing: condominium pets and animals: Yes (2 dogs, 1 lizard) education level: college occupational status: previously employed and student current occupational exposures/hazards: No special katherine needs: No travel history: recent seatbelt use: always helmet use: No water heater temp set < 120 deg: Yes working smoke detector in home: Yes fire extinguisher in home: No carbon monox detector in home: Yes firearms in home: No do you feel safe at home: Yes Smoking Status: Former smoker Tobacco: How many years used: 5 second hand exposure: Yes ( vapes) alcohol intake: never substance use type: marijuana during the past year weight has: decreased > 10 lbs well-balanced diet: about half the time daily servings fruits/ve-4 caffeine: Yes (fruited green tea) Type(s) of exercise: walking and other frequency: daily duration: 15-30 minutes/day Smoking Status: Former smoker Substance Use Type: does not use Exam <Triny Botello PA-C - Last Filed: 11/07/23 16:12> Narrative Exam Narrative: Const General:?cooperative, healthy appearing and comfortable [facility] Head:?normal to inspection Ears:?hearing grossly normal bilaterally Nose:?external nose normal Face and sinus:?normal facial exam and sinuses nontender Mouth:?oral mucosae normal Throat:?posterior oropharynx normal Eyes General:?appearance normal, both eyes and all related structures Neck Neck:?normal visual inspection and no lymphadenopathy noted Resp Effort & Inspection:?normal respiratory effort Auscultation:?clear to auscultation bilaterally Cardio Rate:?regular rate Rhythm:?regular rhythm Musculoskeletal There is no swelling, erythema, tenderness to palpation of the right leg. Strength and sensation is intact. There is full range of motion. Patient is neurovascularly intact. Neuro General:?patient alert, patient awake and patient oriented x3 Initial Vital Signs Initial Vital Signs: Vital Signs Temperature 98.9 F 11/07/23 14:41 Pulse Rate 92 H 11/07/23 14:41 Respiratory Rate 18 11/07/23 14:41 Blood Pressure 122/81 11/07/23 14:41 Pulse Oximetry 100 11/07/23 14:41 Oxygen Delivery Method Room Air 11/07/23 14:41 <Jesi Roth MD - Last Filed: 11/08/23 19:23> Initial Vital Signs Initial Vital Signs: Vital Signs Temperature 98.9 F 11/07/23 14:41 Pulse Rate 92 H 11/07/23 14:41 Respiratory Rate 18 11/07/23 14:41 Blood Pressure 122/81 11/07/23 14:41 Pulse Oximetry 100 11/07/23 14:41 Oxygen Delivery Method Room Air 11/07/23 14:41 Course <Triny Botello PA-C - Last Filed: 11/07/23 16:12> Orders Ordered: ED Orders 11/07/23 14:46 US periph venous low extrem rt Stat Vital Signs Vital signs: Vital Signs - 8 hr 11/07/23 14:41 Temperature 98.9 F Pulse Rate 92 H Respiratory Rate 18 Blood Pressure 122/81 Pulse Oximetry 100 Oxygen Delivery Method Room Air <Jesi Roth MD - Last Filed: 11/08/23 19:23> Orders Ordered: ED Orders 11/07/23 14:46 US periph venous low extrem rt Stat Vital Signs Vital signs: Vital Signs - 8 hr 11/07/23 14:41 Temperature 98.9 F Pulse Rate 92 H Respiratory Rate 18 Blood Pressure 122/81 Pulse Oximetry 100 Oxygen Delivery Method Room Air MDM - Extremity (Nontraumatic) <Triny Botello PA-C - Last Filed: 11/07/23 16:12> MDM Narrative Medical decision making narrative: 23-year-old female presents to the ED with 1 week of right calf and hamstring pain. Concern for DVT versus musculoskeletal sprain/strain versus other. Ultrasound was obtained which shows no acute findings. Patient's symptoms most consistent with a musculoskeletal sprain/strain. Recommend supportive measures with Tylenol, lidocaine patches, Gurmeet wraps, RICE. Recommend follow-up with PCP. ED return precautions discussed with patient. Patient verbalized understanding. Medical records reviewed: Yes Discharge Plan Departure Patient Disposition: Home Clinical Impression: Acute leg pain Qualifiers: Laterality: right Qualified Code(s): M79.604 - Pain in right leg Instructions: DI for Leg Pain Activity Restrictions/Additional Instructions: You were evaluated in the ED today for right-sided leg pain. Your ultrasound was normal. Your leg pain is likely due to a musculoskeletal sprain/strain. You may apply a knee brace or Gurmeet wrap, a lidocaine patch and take Tylenol for the pain. Resting it, elevating it will also help. Please follow-up with your PCP as soon as possible. Return to the ED if you have worsening symptoms, numbness, tingling, weakness. Prescriptions: No Action paroxetine HCl 10 mg tablet 10 mg PO DAILY Qty: 30 2RF buspirone 5 mg tablet 5 mg PO BID PRN (Reason: anxiety) Qty: 60 0RF simethicone [Gas Relief (simethicone)] 80 mg tablet,chewable 80 mg PO BID-QID PRN (Reason: abdominal distention) Qty: 90 1RF hydrocortisone 2.5 % cream 1 applic topical BID PRN (Reason: itching) Qty: 30 0RF (DME) Breast pump See Rx Instructions .Route .MEDSUPPLY Qty: 1 0RF Rx Instructions: As directed hydroxyzine HCl 25 mg tablet 25 mg PO BID Qty: 20 0RF [id number] oil 400 mcg-35 mg -25 mg-5 mg tablet,chewable PO ferrous gluconate [Ferate] 240 mg (27 mg iron) tablet 240 mg PO DAILY ibuprofen 600 mg tablet 600 mg PO Q6H PRN (Reason: pain) Qty: 60 0RF Referrals: [facility] [Primary Care Provider] - Stand Alone Forms: Patient Portal/API ED Sign-out <Jesi Roth MD - Last Filed: 11/08/23 19:23> Cosign ED Attending Cory Attestation: I did not see this patient. I was available all times for consultation.
[2023-11-07 16:09] VITALS: BP 123/70; PULSE 88; RESP 16; O2SAT 99
== END 2023-11-07 16:27 | disposition home or self-care (01) ==
PROVIDERS: Emergency Provider Student in an Organized Health Care Education/Training Program
DX: M79.604 Pain in right leg (principal)
CPT/HCPCS: 93971; 99283